=== PATIENT | female | born 1960 | race African-American/Black ===

== ENCOUNTER 2021-08-14 15:01 | Emergency (ER) | payer OTHER, MEDICARE | END 2021-08-14 16:44 | disposition home or self-care (01) | LOC: BURERS 15:01 | DX: S09.90XA Unspecified injury of head, initial encounter (principal); S16.1XXA Strain of muscle, fascia and tendon at neck level, initial encounter; M79.18 Myalgia, other site; I10 Essential (primary) hypertension; E11.9 Type 2 diabetes mellitus without complications; I25.10 Atherosclerotic heart disease of native coronary artery without angina pectoris; J44.9 Chronic obstructive pulmonary disease, unspecified; F17.210 Nicotine dependence, cigarettes, uncomplicated; V43.62XA Car passenger injured in collision with other type car in traffic accident, initial encounter; W22.10XA Striking against or struck by unspecified automobile airbag, initial encounter | CPT/HCPCS: 70450; 71045; 72125 ==